=== PATIENT | female | born 1935 | race Caucasian/White ===

== ENCOUNTER 2020-08-20 12:24 | Emergency (ER) | payer OTHER, SELFPAY ==
--- NOTE | ~2020-08-20 | XR_ITS ---
XR shoulder RT min 2V DATE: 08/20/2020 12:55 INDICATION: Fall. Right shoulder injury, pain TECHNIQUE: 4 views COMPARISON: None FINDINGS: Diffuse osteopenia. There is degenerative spurring and joint space narrowing at the acromioclavicular joint. No fracture or dislocation, periosteal reaction or bone destruction or abnormal soft tissue calcifica tion of the right shoulder. IMPRESSION: Osteopenia Mild degenerative change at the right acromioclavicular joint Reviewed, dictated and finalized at location B.
--- NOTE | ~2020-08-20 | XR_ITS ---
EXAMINATION: XR chest 2V 08/20/2020 12:55 INDICATION: Status post fall. Chest pain. PROCEDURE: 2 view chest COMPARISON: No prior studies for comparison. FINDINGS: The lungs are clear. There are changes of left shoulder arthroplasty. The cardiomediastinal silhouette is within normal limits. There are no pleural effusions. There is no pneumothorax suspe cted. Calcified granuloma left lower thorax. IMPRESSION: 1: NO ACUTE CARDIOPULMONARY DISEASE. Reviewed, dictated and finalized at location A.
[2020-08-20 12:29] VITALS: BP 192/75; PULSE 90; RESP 18; TEMP 36.2; O2SAT 99
--- NOTE | 2020-08-20 12:45 | ECG_ITS ---
Measurements Intervals Jber Rate: 76 P: IN: 0 QRS: 24 QRSD: 84 T: -7 QT: 368 QTc: 416 Interpretive Statements ATRIAL FIBRILLATION DELAYED PRECORDIAL R/S TRANSITION BORDERLINE ST-T WAVE ABNORMALITY- ANT/INF LEADS BASELINE ARTIFACT- I, II, III, AVR, AVL, AVF, V4-V6 ABNORMAL ECG Electronically Signed On 08-20-2020 13:05:27 CDT by Davy Cramer D.O.
--- NOTE | 2020-08-20 12:49 | ED.FALL ---
HPI - Fall General Chief Complaint: Fall Stated Complaint: right shoulder injury Time Seen by Provider: 08/20/20 12:34 Source: patient, family and RN notes reviewed Mode of arrival: ambulatory Limitations: no limitations History of Present Illness HPI Narrative: Patient is 85 years old white female went to a grocery store, slipped, telling me that her legs got weak and fell. Complaining of right shoulder pain. Patient denies other injuries. Patient denies any headache, palpitation, chest pain, shortness of breath, abdominal pain, nausea, vomiting, diarrhea, constipation, urinary symptoms, lightheadedness, fever or chills. Patient drove to the emergency room by her daughter Related Data Allergies Allergy/AdvReac Type Severity Reaction Status Date / Time meperidine [From Demerol] Allergy Hallucinati Verified 08/20/20 12:34 ng cefdinir [From Omnicef] AdvReac Unknown Verified 08/20/20 12:34 NSAIDS (Non-Steroidal AdvReac Ulcers Verified 08/20/20 12:34 Anti-Inflamma Sulfa (Sulfonamide AdvReac Unknown Verified 08/20/20 12:34 Antibiotics) Review of Systems Review of Systems: Narrative: CONSTITUTIONAL: Denies fever, chills, or sweats. EYES: Denies visual changes, redness, or discharge. ENT: Denies rhinorrhea, congestion, sore throat, or otalgia. CARDIOVASCULAR: Denies chest pain, palpitations, or edema. RESPIRATORY: Denies cough or dyspnea. GASTROINTESTINAL: Denies abdominal pain, nausea, vomiting, or diarrhea. GENITOURINARY: Denies dysuria or hematuria. SKIN: Denies rash or itching. MUSCULOSKELETAL: Denies back pain, joint pain, or myalgia. NEUROLOGIC: Denies headache, numbness, or weakness. PSYCHIATRIC: Denies anxiety or depression. Exam Narrative: Exam Narrative: General appearance: Well-developed, well-nourished Skin: Normal color Head: Normocephalic, nontraumatic Eyes: Clear conjunctiva ENT: Oropharynx normal, ears normal, nose normal Neck: Supple, nontender Chest and respiratory: Airway patent, no respiratory distress, no accessory muscle use Heart: Regular rate/rhythm Abdomen: Soft, nontender, no organomegaly, quiet bowel sounds Vascular: Normal peripheral pulses, normal capillary refill. Musculoskeletal: Diffuse tenderness of the right shoulder, slight limited range of motion, no bruises, no swelling, no deformity Neurologic: Alert and oriented ?3, [employer] is normal as tested, no gross motor deficit Course Course Emergency Course: Stable Vital Signs Vital signs: Vital Signs Temperature 36.2 C L 08/20/20 12:29 Pulse Rate 90 08/20/20 12:29 Respiratory Rate 18 08/20/20 12:29 Blood Pressure 192/75 H 08/20/20 12:29 Pulse Oximetry 99 08/20/20 12:29 Temperature 36.2 C L 08/20/20 12:29 Pulse Rate 69 08/20/20 14:04 Respiratory Rate 17 08/20/20 14:04 Blood Pressure 158/67 H 08/20/20 14:04 Pulse Oximetry 100 08/20/20 14:04 MDM - Fall MDM Narrative Medical decision making narrative: Patient presents with a fall resulting in right shoulder pain. Labs, x-ray right shoulder ordered. Further plan to follow Differential Diagnosis Differential diagnosis: Likely other (Right shoulder contusion, fracture, orthostatic hypotension, electrolyte imbalance) Lab Data Result diagrams: 08/20/20 13:19 08/20/20 13:19 Labs: Lab Results 08/20/20 08/20/20 08/20/20 Range/Units 13:04 13:19 13:19 WBC 9.9 (4.5-10.0) K/mm3 RBC 4.42 (4.2-5.4) M/mm3 Hgb 12.5 (12.0-15.0) g/dL Hct 38.8 (37.0-47.0) % MCV 87.8 (80-100) fl MCH 28.3 (26-34) pg MCHC 32.2 (32-36) g/dl RDW 14.2 (11.5-14.5) % Plt Count 191 (150-375) k/mm3 MPV 11.6 H (7.4-10.4) fl
[2020-08-20 13:13] LABS: Add Urine Microscopic? YES; Appearance Urine Cloudy (Clear); Bacteria Urine Trace /hpf; Bilirubin Urine Negative (Negative); Color Urine Yellow (Yellow); Glucose Urine UA Negative (Negative); Ketones Urine Negative (Negative); Leukocyte Esterase Ur 1+ LEU/UL (Negative); Mucus Urine Rare /lpf; Nitrate Urine Positive (Negative); Protein Urine 1+ mg/dL (Negative); RBC Urine 0-2 /hpf (0-2); Specific Grav Ur 1.018 (1.001-1.035); Squamous Epithelial Cell Urine Rare /hpf (Few); Urobilinogen Urine Negative mg/dL (<2.0)
[2020-08-20 13:16] LABS: Blood Urine Negative (Negative)
[2020-08-20 13:26] VITALS: BP 159/76; PULSE 80
[2020-08-20 13:27] LABS: Basophils Absolute Auto 0.1 K/mm3 (0.0-0.1); Basophils Percent Auto 0.6 % (0.2-1.2); Eosinophils Absolute Auto 0.2 K/mm3 (0-0.3); Eosinophils Percent Auto 1.8 % (0-4.4); Hematocrit 38.8 % (37.0-47.0); Hemoglobin 12.5 g/dL (12.0-15.0); Immature Granulocyte Absolute 0.06 K/mm3 (0.00-0.031); Immature Granulocyte Percent A 0.6 % (0-0.5); Lymphocytes Percent Auto 17.2 % (18.3-44.2); Mean Corpuscular HGB Conc 32.2 g/dl (32-36); Mean Corpuscular Hemoglobin 28.3 pg (26-34); Mean Corpuscular Volume 87.8 fl (80-100); Mean Platelet Volume 11.6 fl (7.4-10.4); Monocytes Percent Auto 10.2 % (2.6-8.5); Neutrophils Absolute Auto 6.9 K/mm3 (1.3-6.7); Neutrophils Percent Auto 69.6 % (45.5-73.1); Platelet Count Result 191 k/mm3 (150-375); Red Blood Count 4.42 M/mm3 (4.2-5.4); Red Cell Distribution Width 14.2 % (11.5-14.5); White Blood Count 9.9 K/mm3 (4.5-10.0)
[2020-08-20 13:28] VITALS: BP 167/83; PULSE 83
[2020-08-20 13:30] VITALS: BP 165/79; PULSE 77
[2020-08-20 13:38] LABS: Alanine Aminotransferase 14 U/L (4-35); Albumin Level 4.2 g/dL (3.5-5.1); Alkaline Phosphatase 128 U/L (38-126); Anion Gap 7 mmol/L (8-16); Aspartate Amino Transferase 25 U/L (14-36); Bilirubin,Total 0.2 mg/dL (0.2-1.3); Blood Urea Nitrogen 16 mg/dL (7-17); Calcium 8.9 mg/dL (8.4-10.2); Carbon Dioxide 26 mmol/L (22-30); Chloride 106 mmol/L (98-107); Estimated CRCL calculation 62 ml/min; Estimated Glomerular Filt Rate > 60; Glucose 107 mg/dL (65-105); Potassium 4.1 mmol/L (3.4-5.0); Sodium 139 mmol/L (137-145)
[2020-08-20 14:04] VITALS: BP 158/67; PULSE 69; RESP 17; O2SAT 100
== END 2020-08-20 14:42 | disposition home or self-care (01) ==
PROVIDERS: Emergency Provider Emergency Medicine; PCP Family Medicine
DX: N39.0 Urinary tract infection, site not specified (principal); S40.011A Contusion of right shoulder, initial encounter; W01.0XXA Fall on same level from slipping, tripping and stumbling without subsequent striking against object, initial encounter
CPT/HCPCS: 36415; 71046; 73030; 80053; 81001; 85025; 87077; 87086; 87088; 87186; 93005; 99284; A9270

== ENCOUNTER 2022-11-18 11:33 | Emergency (ER) | payer OTHER, SELFPAY ==
--- NOTE | ~2022-11-18 | CT_ITS ---
EXAMINATION: CT cervical spine wo con DATE: 11/18/2022 15:04 INDICATION: Neck pain after trauma TECHNIQUE: Computed tomography (CT) of the cervical spine was performed without intravenous contrast. The dose-length product was 456 mGy-cm. Automated exposure control and iterative reconstruction tech [employer] were employed. COMPARISON: No prior studies for comparison. FINDINGS: Normal cervical lordosis. Vertebral body heights are maintained. There is disc narrowing at C5-6. There is no evidence for perched facet. Craniovertebral junction is normal. No paraspinal soft tissue abnormality. Odontoid process is normal. Lung apices are normal. There is levoscoliosis. Ther e is mild-moderate multilevel uncinate and facet hypertrophy. Lateral masses normally aligned. IMPRESSION: 1. No acute abnormality of the cervical spine. Reviewed, dictated and finalized at location L.
--- NOTE | ~2022-11-18 | XR_ITS ---
[[id number] ] INDICATION: Trauma. Right rib pain. TECHNIQUE: Frontal projection of the upper right ribs, frontal projection of the lower right ribs, ob lique projection of all the right ribs, frontal inspiratory chest x-ray for interpretation. FINDINGS: There are no displaced rib fractures identified. There are no soft tissue abnormality see n. The lungs are clear. 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 Cardiomegaly. IMPRESSION: 1:No acute displaced rib fractures. Reviewed, dictated and finalized at location L.
--- NOTE | ~2022-11-18 | CT_ITS ---
EXAMINATION: CT brain wo con DATE: 11/18/2022 15:03 INDICATION: trauma . TECHNIQUE: Computed tomography (CT) of the head was performed without intravenous contrast. The mA wa s adjusted according to patient size. Iterative reconstruction technique was employed. The dose-lengt h product was 605.33 mGy-cm. COMPARISON: None. FINDINGS: No acute intracranial hemorrhage or extra-axial fluid collection. No hydrocephalus, mass, or herniation. No acute ischemic infarct. Unremarkable dural venous sinus attenuation. No acute osseous abnormality. Small osteomas in the right sphenoid sinus. Trace right mastoid fluid, the remaining aerated spaces a re clear. Mild atrophy and chronic white matter change. Atherosclerotic intracranial calcification. Bilateral l ens replacements. Small focus of encephalomalacia in the left medial occipital lobe. IMPRESSION: No acute intracranial process. Reviewed, dictated and finalized at location K.
[2022-11-18 12:03] VITALS: BP 151/71; PULSE 80; RESP 18; TEMP 36.4; O2SAT 99
--- NOTE | 2022-11-18 15:49 | ED.FALL ---
HPI - Fall General Chief Complaint: Fall Stated Complaint: fell and hit head Time Seen by Provider: 11/18/22 14:30 History of Present Illness HPI Narrative: Patient is an 87-year-old female who presents ER after a fall from standing. Patient was using a steamer to clean a over coat. She then slipped on a piece of plastic falling backwards. She landed on her butt and then struck her head and right chest wall. No loss of consciousness. She does have some pain in her neck and left shoulder. She has developed a throbbing global headache since then. She is on no blood thinning medication. Denies any numbness or weakness in arm or leg. No slurred speech. Has had a stroke in the past. She has tried some Tylenol which is helped her headache. Related Data Allergies Allergy/AdvReac Type Severity Reaction Status Date / Time meperidine [From Demerol] Allergy Hallucinati Verified 08/20/20 12:34 ng cefdinir [From Omnicef] AdvReac Unknown Verified 08/20/20 12:34 NSAIDS (Non-Steroidal AdvReac Ulcers Verified 08/20/20 12:34 Anti-Inflamma Sulfa (Sulfonamide AdvReac Unknown Verified 08/20/20 12:34 Antibiotics) Review of Systems Review of Systems: All systems reviewed & are unremarkable except as noted in HPI and below Constitutional: Constitutional: Denies chills, Denies fatigue and Denies fever(s) ENT: Denies nasal congestion and Denies sore throat Cardiovascular: Cardiovascular: Reports chest pain (Chest wall right) and Denies rapid heart rate Respiratory: Respiratory: Denies cough and Denies dyspnea Gastrointestinal: Gastrointestinal: Denies nausea and Denies vomiting Neurologic: Denies syncope, Reports headache(s), Denies focal weakness and Denies numbness PMFSH Past Medical History Medical History (Updated 11/18/22 @ 15:54 by Anibal Taylor MD) History of CVA (cerebrovascular accident) Hypertension Surgical History Surgical History (Updated 11/18/22 @ 15:51 by Anibal Taylor MD) No pertinent past surgical history Exam Narrative: GENERAL: Well-appearing, well-nourished, and in no acute distress. HEAD: Normocephalic, atraumatic. EYES: PERRL and EOMI. ENT: Mucous membranes moist. NECK: Supple. No midline tenderness of the C-spine but does have left trapezius tenderness. Normal range of motion. CHEST: Clear to auscultation. No respiratory distress. Mild tenderness over the rib cage of the right posterior lateral chest wall. HEART: Regular rate and rhythm. Normal peripheral pulses. ABDOMEN: Soft, nontender, nondistended. EXTREMITIES: Normal range of motion. No edema. SKIN: Warm, dry, no rash. NEURO: Alert and oriented x3. PSYCH: Normal mood and affect. Course Course Emergency Course: Patient resting comfortably. Informed of imaging results. Given reassurance. Discharge home. Vital Signs Vital signs: Vital Signs Temperature 97.6 F 11/18/22 12:03 Pulse Rate 80 11/18/22 12:03 Respiratory Rate 18 11/18/22 12:03 Blood Pressure 151/71 H 11/18/22 12:03 Pulse Oximetry 99 11/18/22 12:03 Oxygen Delivery Room Air 11/18/22 12:03 Temperature 97.6 F 11/18/22 12:03 Pulse Rate 80 11/18/22 12:03 Respiratory Rate 18 11/18/22 12:03 Blood Pressure 151/71 H 11/18/22 12:03 Pulse Oximetry 99 11/18/22 12:03 Oxygen Delivery Room Air 11/18/22 12:03 MDM - Fall Imaging Data Radiologist's impression: ITS Impressions Head CT 11/18/22 15:05 IMPRESSION: No acute intracranial process. Cervical Spine CT 11/18/22 15:09 IMPRESSION: 1. No acute abnormality of the cervical spine. Ribs w/Chest X-Ray 11/18/22 15:44 IMPRESSION: 1:No acute displaced rib fractures. Discharge Plan Discharge Clinical Impression: Headache, Cervical strain, Chest wall pain Patient Disposition: Home, Self-Care Condition: Stable Instructions: Cervical Strain (ED), Thoracic Pain (ED), General Headache (ED) Additi
== END 2022-11-18 16:17 | disposition home or self-care (01) ==
PROVIDERS: Emergency Provider Emergency Medicine
DX: S16.1XXA Strain of muscle, fascia and tendon at neck level, initial encounter (principal); R51.9 Headache, unspecified; R07.89 Other chest pain; I10 Essential (primary) hypertension; Z86.73 Personal history of transient ischemic attack (TIA), and cerebral infarction without residual deficits; W01.0XXA Fall on same level from slipping, tripping and stumbling without subsequent striking against object, initial encounter
CPT/HCPCS: 70450; 71101; 72125; 99284